=== PATIENT | male | born 1955 | race Caucasian/White ===

== ENCOUNTER → 2019-04-20 15:42 | Outpatient (CLI) | payer BC, SELFPAY ==
--- NOTE | 2019-04-20 15:55 | CT_ITS ---
STUDY: CT CHEST WITH CONTRAST REASON FOR EXAM: Male, 63 years old. DYSPNEA/PLEURAL EFFUSE ION. H/O PNEUMONIA. RADIATION DOSAGE (If Supplied By Facility): CTDIvol = ( 42.78 ) mGy, DLP = ( 1154.35 ) mGycm TECHNIQUE: Transaxial imaging was performed following intravenous administration of IV 100mL Isovue-300. Individualized dose optimization techniques were used for this CT. COMPARISON: None. FINDINGS: There is an accessory azygos fissure of the right upper lobe. There is minimal streaky fibrosis or atelectasis of the right middle lobe. There is no evidence of viviana infiltrate. There is no demonstrated pleural abnormality. Normal heart and pericardium. Coronary arterial calcifications are present. Normal mediastinum. Normal hilar regions. There is dilatation of the main, left, and right pulmonary arteries. The main pulmonary artery measures up to 4.5 cm in diameter. There are calcified plaques of the aortic arch. There are diffuse degenerative changes of the visualized thoracolumbar spine. There is no demonstrated abnormality of the visualized upper abdomen. CT/Chest WITH Contrast IMPRESSION: 1. There is minimal streaky fibrosis or atelectasis of the right middle lobe. 2. Coronary arterial calcifications are present. 3. There is dilatation of the main pulmonary artery, left, and right pulmonary arteries. The main pulmonary artery measures up to 4.5 cm in diameter. This may be associated with pulmonary hypertension. Electronically Signed: Dae Guallpa MD at 23:43 EST , Service support ,
[2019-04-20 16:26] LABS: CREATININE FINGERSTICK < 0.6 mg/dL (0.70-1.30); EGFR FINGERSTICK > 60.0000 mL/min (>60)
[2019-04-20 17:16] LABS: Absolute Lymphocyte Count 2.36 X10^3/uL (0.83-4.51); Absolute Neutrophil Count 5.3 X10^3/uL (2.0-7.7); Basophil# 0.02 X10^3/uL; Basophil% 0.2 % (0-1); Eosinophil# 0.18 X10^3/uL; Eosinophils% 2.1 % (0-5); Hematocrit 45.4 % (40-54); Hemoglobin 14.6 g/dL (13.0-16.5); Lymphocyte # 2.36 X10^3/ul (4.0); Lymphocyte % 27.4 % (19-41); Mean Corp Hgb Conc 32.2 g/dL (32-36); Mean Corpuscular Hgb 29.1 pg (27.0-32.0); Mean Corpuscular Volume 90.6 fL (80-94); Mean Platelet Vol. 9.6 fl (6.2-12.0); Monocyte# 0.74 X10^3/uL; Monocyte% 8.6 % (0-10); NRBC Flagged by Analyzer 0 % (0-5); Neutrophil # 5.27 X10^3/uL (2.7-7.7); Neutrophil % 61.4 % (47-70); Platelet Count 226 K/mm3 (150-450); RBC Distribution Width CV 13.2 % (11.6-14.6); RBC Distribution Width SD 44.2 fl (35.1-43.9); Red Blood Count 5.01 M/mm3 (4.6-6.2); White Blood Count 8.6 K/mm3 (4.4-11.0)
== END ==
PROVIDERS: PCP Family Medicine; Referring Provider Internal Medicine Pulmonary Disease; Visit Provider Internal Medicine Pulmonary Disease
DX: R06.00 Dyspnea, unspecified (principal); J90 Pleural effusion, not elsewhere classified; J18.9 Pneumonia, unspecified organism
CPT/HCPCS: 36415; 71260; 85025; Q9967